=== PATIENT | female | born 1975 | race Caucasian/White ===

== ENCOUNTER 2021-06-30 08:46 | Outpatient (CLI) | payer OTHER | END 2021-06-30 08:47 | disposition home or self-care (01) | LOC: DTY/OP 08:46 | PROVIDERS: ATTEND Internal Medicine Gastroenterology | DX: K75.81 Nonalcoholic steatohepatitis (NASH) (principal) | CPT/HCPCS: 97802 ==

== ENCOUNTER 2021-08-13 16:38 | Inpatient (IN) | payer OTHER, BC ==
[~2021-08-13 16:38] MED LIST: Iopamidol 370 76% 100 ML VIAL ONE
[2021-08-13] MEDS ORDERED: Morphine 4 MG/ML VIAL ONE (17:08)
[2021-08-13] MEDS ORDERED: HYDROmorphone 0.5 MG/0.5 ML SYRINGE ONE (17:15)
[2021-08-13] MEDS ORDERED: Ondansetron PF 4 MG/2 ML Vial ONE ×2 (17:15→17:18)
[2021-08-13 17:22] LABS: #Basophils 0.1 thou/uL (0.0-0.2); #Eosinphils 0.1 thou/uL (0.0-0.7); #Lymphocytes 3.2 thou/uL (1.20-3.40); #Monocytes 0.7 thou/uL (0.11-0.59); #Neutrophils 10.9 thou/uL (1.40-6.50); %Basophils 0.4 % (0.0-1.0); %Eosinophils 0.7 % (0.0-10.0); %Lymphocytes 21.2 % (21.0-51.0); %Monocytes 4.9 % (0.0-10.0); %Neutrophils 72.8 % (42.0-75.0); Hemoglobin 12.7 g/dL (12.0-16.0); Mean Corpuscular HGB CONC 34.9 g/dL (32.0-36.0); Mean Corpuscular Hemoglobin 30.6 pg (27.0-31.0); Mean Corpuscular Volume 87.5 fL (78.0-98.0); Mean Platelet Volume 7.4 fL (7.4-10.4); Platelet Count 304 thou/uL (130-400); RBC Distribution Width 11.7 % (11.5-14.5); Red Blood Cell (RBC) Count 4.16 mill/uL (4.20-5.40)
[2021-08-13 17:27] LABS: BHCG - Serum Negative (NEGATIVE); Pregs Control Background? CLEAR/WHITE (CLR/WHITE); Pregs Control Bar Appear? YES (CONTROL BAR)
[2021-08-13 17:33] LABS: INR-International Normal Ratio 0.9; Prothrombin Time 12.6 sec (12.0-14.7)
[2021-08-13 17:46] LABS: ALT (SGPT) 24 U/L (8-55); AST (SGOT) 18 U/L (5-34); Alkaline Phosphatase 50 U/L (40-110); Anion Gap 14 mmol/L (10-20); BUN (Urea Nitrogen) 14 mg/dL (7.0-18.7); Bilirubin, Total 0.2 mg/dL (0.2-1.2); Calc. Creatinine Clearance 0 mL/min (70-130); Calcium 9.5 mg/dL (7.8-10.44); Carbon Dioxide 20 mmol/L (22-29); Chloride 104 mmol/L (98-107); Glucose 107 mg/dL (70-105); Potassium 4.1 mmol/L (3.5-5.1); Sodium 134 mmol/L (136-145)
[2021-08-13] MEDS ORDERED: Morphine 2 MG/ML VIAL SLOW IVP PRN (18:18)
[2021-08-13] MEDS ORDERED: Promethazine HCl 25 MG/ML VIAL IM PRN ×2 (18:18→19:48)
[2021-08-13] MEDS ORDERED: hydrALAZINE 20 MG/ML VIAL SLOW IVP PRN (18:18)
[2021-08-13] MEDS ORDERED: Ondansetron PF 4 MG/2 ML Vial IVP PRN (18:18)
[2021-08-13] MEDS ORDERED: Lidocaine 1% w/Epinephrine 1:100K 20 ML VIAL ONE (18:21)
[2021-08-13] MEDS ORDERED: Bupivacaine 0.25% HCL 30 ML VIAL ONE (18:21)
[2021-08-13] MEDS ORDERED: Sodium Chloride 0.9% 1,000 ML IV SCH (18:30)
[2021-08-13] MEDS ORDERED: fentaNYL Citrate/PF 100 MCG/2 ML SYRINGE ONE ×2 (18:34→20:07)
[2021-08-13] MEDS ORDERED: Morphine 4 MG/ML VIAL SLOW IVP PRN (18:44)
[2021-08-13] MEDS ORDERED: Glycopyrrolate 0.2 MG/ML 5 ML SYRINGE ONE (18:52)
[2021-08-13] MEDS ORDERED: Succinylcholine 200 MG/10 ml SYRINGE FS ONE (18:52)
[2021-08-13] MEDS ORDERED: PHENYLEPHRINE-NS 100 MCG/ML 10 ML SYRINGE ONE (18:52)
[2021-08-13] MEDS ORDERED: PROPOFOL 200 MG/20 ML VIAL ONE (18:52)
[2021-08-13] MEDS ORDERED: Ketorolac Tromethamine 30 MG/ML VIAL ONE (18:52)
[2021-08-13] MEDS ORDERED: Lidocaine 1% PF 5 ML VIAL ONE (18:52)
[2021-08-13] MEDS ORDERED: Rocuronium Bromide 10 MG/ML (10ML VIAL) ONE (18:52)
[2021-08-13 19:13] LABS: SARS-CoV-2 NAA Rapid Test Not Detected (NotDetected)
[2021-08-13] MEDS ORDERED: Midazolam HCl 2 mg/2 ml Vial ONE (19:41)
[2021-08-13] MEDS ORDERED: Meperidine HCl/PF 25 MG/ML VIAL SLOW IVP PRN (19:48)
[2021-08-13] MEDS ORDERED: Promethazine HCl 25 MG/ML VIAL IVPB PRN (19:48)
[2021-08-13] MEDS ORDERED: Famotidine/PF 20 mg/2ml Vial SLOW IVP SCH (21:00)
[2021-08-13 21:25] LABS: Hemoglobin 11.6 g/dL (12.0-16.0)
[2021-08-13] MEDS ORDERED: CEFAZOLIN 1 GM VIAL SLOW IVP SCH (22:00)
[2021-08-13] MEDS: Senokot S 8.6-50 MG TAB PO SCH (22:02)
[2021-08-13] MEDS: CEFAZOLIN 2 GM in Sodium Chloride 0.9% 100 ML IVPB SCH (22:02)
[2021-08-13] MEDS: Sodium Chloride 0.9% 1,000 ML IV SCH (22:02)
[2021-08-13 22:16] VITALS: BMI 42.3
[2021-08-14] MEDS: Acetaminophen 500 MG TAB PO SCH ×4 (00:01→18:33)
[2021-08-14] MEDS: Famotidine 40 MG/4 ML VIAL SLOW IVP SCH ×2 (00:01→14:38)
[2021-08-14] MEDS: traMADol HCl 50 MG TAB PO SCH ×5 (00:01→21:17)
[2021-08-14 00:38] LABS: Hemoglobin 11.1 g/dL (12.0-16.0)
[2021-08-14] MEDS: CEFAZOLIN 2 GM in Sodium Chloride 0.9% 100 ML IVPB SCH ×2 (06:19→14:44)
[2021-08-14 06:29] LABS: #Eosinphils 0.2 thou/uL (0.0-0.7); #Lymphocytes 1.3 thou/uL (1.20-3.40); #Monocytes 0.7 thou/uL (0.11-0.59); #Neutrophils 9.2 thou/uL (1.40-6.50); %Basophils 0.1 % (0.0-1.0); %Eosinophils 1.3 % (0.0-10.0); %Monocytes 6.4 % (0.0-10.0); %Neutrophils 81.1 % (42.0-75.0); Hemoglobin 10.4 g/dL (12.0-16.0); Mean Corpuscular HGB CONC 34.1 g/dL (32.0-36.0); Mean Corpuscular Hemoglobin 30.9 pg (27.0-31.0); Mean Corpuscular Volume 90.6 fL (78.0-98.0); Mean Platelet Volume 7.8 fL (7.4-10.4); Platelet Count 246 thou/uL (130-400); Red Blood Cell (RBC) Count 3.36 mill/uL (4.20-5.40); White Blood Cell (WBC) Count 11.4 thou/uL (4.8-10.8)
[2021-08-14 08:17] LABS: Calcium 8.3 mg/dL (7.8-10.44); Chloride 105 mmol/L (98-107); Potassium 4.3 mmol/L (3.5-5.1); Sodium 135 mmol/L (136-145)
[2021-08-14 08:18] LABS: Glucose 139 mg/dL (70-105)
[2021-08-14 08:19] LABS: Anion Gap 12 mmol/L (10-20); Carbon Dioxide 22 mmol/L (22-29)
[2021-08-14 08:21] LABS: Calc. Creatinine Clearance 158 mL/min (70-130)
[2021-08-14 08:22] LABS: BUN (Urea Nitrogen) 12 mg/dL (7.0-18.7)
[2021-08-14] MEDS: Sodium Chloride 0.9% 1,000 ML IV SCH ×2 (08:29→14:38)
[2021-08-14] MEDS: Morphine 2 MG/ML VIAL SLOW IVP PRN ×2 (08:31→13:20)
[2021-08-14] MEDS: Senokot S 8.6-50 MG TAB PO SCH ×2 (08:46→20:26)
[2021-08-14] MEDS: Polyethylene Glycol 3350 17 GM Packet PO SCH ×2 (08:46→21:19)
[2021-08-14] MEDS ORDERED: Escitalopram Oxalate 10 mg Tablet PO PRN (10:23)
[2021-08-14] MEDS ORDERED: Modafinil 100 MG TAB PO PRN (10:25)
[2021-08-14] MEDS ORDERED: Bupivacaine 0.25% HCL 30 ML VIAL ONE (17:48)
[2021-08-14] MEDS ORDERED: Lidocaine 1% w/Epinephrine 1:100K 20 ML VIAL ONE (17:48)
[2021-08-14] MEDS ORDERED: fentaNYL Citrate/PF 100 MCG/2 ML SYRINGE ONE (17:54)
[2021-08-14] MEDS ORDERED: CEFAZOLIN 2 GM VIAL ONE (17:56)
[2021-08-14] MEDS ORDERED: Sodium Chloride 0.9% 100 ML ONE (17:56)
[2021-08-14] MEDS ORDERED: Ondansetron PF 4 MG/2 ML Vial ONE (18:08)
[2021-08-14] MEDS ORDERED: PROPOFOL 200 MG/20 ML VIAL ONE (18:08)
[2021-08-14] MEDS ORDERED: Lidocaine 1% PF 5 ML VIAL ONE (18:08)
[2021-08-14] MEDS ORDERED: Ketorolac Tromethamine 30 MG/ML VIAL IVP SCH (19:00)
[2021-08-14] MEDS ORDERED: Fentanyl 100 MCG/2 ML VIAL ONE ×2 (19:09→19:23)
[2021-08-14] MEDS ORDERED: Ketorolac Tromethamine 30 MG/ML VIAL ONE (19:26)
[2021-08-14] MEDS ORDERED: Cyclobenzaprine 10 MG TAB ONE (19:33)
[2021-08-14] MEDS: Cyclobenzaprine 10 MG TAB PO PRN (19:35)
[2021-08-15] MEDS: Acetaminophen 500 MG TAB PO SCH ×3 (00:04→11:53)
[2021-08-15] MEDS: traMADol HCl 50 MG TAB PO PRN ×3 (00:05→16:28)
[2021-08-15] MEDS: Ketorolac Tromethamine 30 MG/ML VIAL IVP SCH ×2 (00:08→05:34)
[2021-08-15] MEDS: Morphine 2 MG/ML VIAL SLOW IVP PRN ×2 (02:21→10:44)
[2021-08-15] MEDS: traMADol HCl 50 MG TAB PO SCH ×2 (05:34→11:53)
[2021-08-15] MEDS: Cyclobenzaprine 10 MG TAB PO PRN (05:36)
[2021-08-15 06:24] LABS: #Eosinphils 0.1 thou/uL (0.0-0.7); #Lymphocytes 2.1 thou/uL (1.20-3.40); #Monocytes 0.6 thou/uL (0.11-0.59); #Neutrophils 4.6 thou/uL (1.40-6.50); %Basophils 0.2 % (0.0-1.0); %Eosinophils 1.2 % (0.0-10.0); %Lymphocytes 28.1 % (21.0-51.0); %Neutrophils 62.5 % (42.0-75.0); Hemoglobin 8.3 g/dL (12.0-16.0); Mean Corpuscular HGB CONC 33.9 g/dL (32.0-36.0); Mean Corpuscular Hemoglobin 31.2 pg (27.0-31.0); Mean Platelet Volume 7.2 fL (7.4-10.4); Platelet Count 185 thou/uL (130-400); Red Blood Cell (RBC) Count 2.66 mill/uL (4.20-5.40); White Blood Cell (WBC) Count 7.3 thou/uL (4.8-10.8)
[2021-08-15] MEDS: Senokot S 8.6-50 MG TAB PO SCH (08:23)
[2021-08-15] MEDS: Polyethylene Glycol 3350 17 GM Packet PO SCH (08:23)
[2021-08-15] MEDS ORDERED: Ibuprofen 600 MG TAB PO SCH (11:00)
[2021-08-15] MEDS ORDERED: Magnesium Citrate 300 ML BOT PO SCH (12:15)
[2021-08-15 13:16] VITALS: BP 103/69; TEMP 98.1
== END 2021-08-15 17:40 | disposition home or self-care (01) | DRG 580 ==
LOC: ERS 16:38 → SDC 18:43 → SURG B 20:36
PROVIDERS: ADMIT Specialist; ATTEND Specialist
PROC: 0HCT0ZZ Extirpation of Matter from Right Breast, Open Approach (ICD-10-PCS; principal; 2021-08-13)
PROC: 0KQH0ZZ Repair Right Thorax Muscle, Open Approach (ICD-10-PCS; 2021-08-14)
DX: S20.01XA Contusion of right breast, initial encounter (principal); Z68.41 Body mass index [BMI] 40.0-44.9, adult; Z20.822 Contact with and (suspected) exposure to COVID-19; F41.9 Anxiety disorder, unspecified; F32.A Depression, unspecified; J45.909 Unspecified asthma, uncomplicated; E66.9 Obesity, unspecified; V44.6XXA Car passenger injured in collision with heavy transport vehicle or bus in traffic accident, initial encounter; Y92.410 Unspecified street and highway as the place of occurrence of the external cause; Z90.49 Acquired absence of other specified parts of digestive tract; Z90.710 Acquired absence of both cervix and uterus; Z98.890 Other specified postprocedural states; Z79.899 Other long term (current) drug therapy
CPT/HCPCS: 36415; 70450; 71045; 71260; 72125; 74177; 80048; 80053; 84703; 85014; 85018; 85025; 85610; 85730; 86850; 86900; 86901; 96374; 96375; C1889; G0390; J1170; J1885; J2250; J2270; J2405; J2704; J3010; J3490; J7050; J7620; Q9967; S0020; U0002

== ENCOUNTER 2021-08-27 09:33 | Emergency (ER) | payer OTHER, BC ==
[2021-08-27] MEDS ORDERED: Ketorolac Tromethamine 30 MG/ML VIAL ONE (11:45)
== END 2021-08-27 12:47 | disposition home or self-care (01) ==
LOC: ERS 09:33
DX: M79.652 Pain in left thigh (principal); J45.909 Unspecified asthma, uncomplicated; V49.9XXA Car occupant (driver) (passenger) injured in unspecified traffic accident, initial encounter; Z79.899 Other long term (current) drug therapy
CPT/HCPCS: 96372; J1885

== ENCOUNTER 2021-09-09 09:29 | Outpatient (CLI) | payer BC | END 2021-09-09 09:30 | disposition home or self-care (01) | LOC: SCSMRI 09:29 | PROVIDERS: ATTEND Physician Assistant | DX: M51.16 Intervertebral disc disorders with radiculopathy, lumbar region (principal); M51.17 Intervertebral disc disorders with radiculopathy, lumbosacral region; M47.26 Other spondylosis with radiculopathy, lumbar region; M48.061 Spinal stenosis, lumbar region without neurogenic claudication | CPT/HCPCS: 72148 ==

== ENCOUNTER 2022-08-26 12:50 | Outpatient (CLI) | payer BC | END 2022-08-26 12:51 | disposition home or self-care (01) | LOC: BICMAMMO 12:50 | PROVIDERS: ATTEND Family Medicine | DX: Z12.31 Encounter for screening mammogram for malignant neoplasm of breast (principal) | CPT/HCPCS: 77063; 77067 ==